=== PATIENT | female | born 1975 | race Caucasian/White ===

== ENCOUNTER → 2020-05-29 11:22 | Outpatient (ROUT) | payer OTHER, SELFPAY ==
[2020-05-29 11:42] LABS: COVID19 -Nasal RAPID Negative (Negative)
== END ==
PROVIDERS: PCP Family Medicine; Visit Provider Specialist
DX: Z01.818 Encounter for other preprocedural examination (principal); Z20.822 Contact with and (suspected) exposure to COVID-19
CPT/HCPCS: 87635

== ENCOUNTER 2020-05-29 12:38 | Day surgery (SDC) | payer OTHER, SELFPAY ==
[2020-05-29] VITALS (10 sets, daily range): BP systolic 98–138; BP diastolic 58–80; PULSE 62–98; RESP 14–19; TEMP 36.6–37.1; O2SAT 96–98; BMI 29.7
--- NOTE | 2020-05-29 | PATH_ITS ---
[facility] Accession Number: [id number] . 01 Material submitted: . uterus - UTERUS, LEFT OVARY, LEFT FALLOPIAN TUBE AND RIGHT FALLOPIAN TUBE . 01 Clinical history: . OPB . 02 Diagnosis: Uterus, Left Ovary, Left Fallopian Tube, and Right Fallopian Tube, Supracervical Hysterectomy, Left Salpingo-oophorectomy and Right Salpingectomy (Weight 64 grams): Weakly proliferative endometrium; negative for glandular hyperplasia, cytologic atypia or malignancy. Myometrium with no significant histomorphologic abnormality. Uterine serosa with no significant histomorphologic abnormality. Left ovary with a benign serous cystadenoma (1.8 cm in greatest dimension) and an adjacent benign follicle cyst (1.0 cm in greatest dimension). Left fallopian tube with benign paratubal cysts (1-2 mm) and no significant histomorphologic abnormality. Right fallopian tube with multiple benign paratubal cysts (1-2 mm in greatest dimension) and otherwise no significant histomorphologic abnormality. [facility] 06/05/2020 1235 Local . 02 Electronically signed: . Guera Harry MD, Pathologist NPI- [id number] . 01 Gross description: . The specimen is received in formalin, labeled uterus, left ovary, left tube and right tube and consists of a 64-gram supracervically resected uterus with attached left adnexa. The specimen is diffusely disrupted and measures 5.2 cm from superior fundus to lower uterine segment by 6.0 cm from cornu to cornu by 4.0 cm from anterior to posterior. The serosa is mulligan-pink and smooth. Sectioning reveals a 4.0 x 2.5 cm endometrial cavity with a mulligan-pink slightly granular endometrium measuring 0.1 cm in thickness. The myometrium is mulligan-pink and trabeculated measuring 2.2 cm in thickness. The left fallopian tube measures 3.5 cm in length by 0.6 cm in diameter and displays a pink-purple smooth serosa with multiple paratubal cysts ranging from 0.1 to 0.2 cm. Sectioning reveals a mulligan-pink mucosa and a stellate lumen measuring 0.3 cm in diameter. The left ovary measures 2.6 x 2.5 x 1.5 cm and displays a mulligan cerebriform to smooth external surface. Sectioning reveals two mulligan-pink smooth walled cysts measuring 1.0 and 1.8 cm. The larger cysts contains hemorrhagic material. No papillary excrescences are identified. The partially detached right fallopian tube measures 5.0 cm in length by 0.8 cm in diameter and displays a mulligan-pink smooth serosa with multiple paratubal cysts ranging from 0.1 to 0.2 cm. Sectioning reveals a mulligan-pink mucosa and a stellate lumen measuring 0.3 cm in diameter. Surgical Dressing Maker sections are submitted. . A1: anterior lower uterine segment. A2: posterior lower uterine segment. A3-A4: anterior uterus. A5-A6: posterior uterus. A7: left fallopian tube, central cross-sections and bisected fimbria. A8-A9: collections representative left ovary. A10: right fallopian tube, central cross-sections and bisected fimbria. (EA:[id number]) /MRV 05/30/2020 [facility]3 Local . 02 Pathologist provided ICD-10: N81.10, N92.0, N81.6, Z87.42 . 02 CPT . 943600 Performed at: [facility] [address] [id number] MD Carlos Ramos MD Phone: [phone] Performed at: 02 [facility] [address] [place], [place] [id number] MD Albertina Magallanes MD Phone: [phone]
--- NOTE | 2020-05-29 13:35 | PM.PREOP ---
Pre-operative Note COVID-19 COVID-19 status: Negative Result date/Date tested (Pos, Neg/Pending): 05/29/20 Interval Note History & Physical reviewed/Exam performed by Physician: Yes Changes to H&P: No
[2020-05-29] MEDS: CEFAZOLIN 2 GM/100 ML FROZ.PIGGY IV (14:10)
--- NOTE | 2020-05-29 14:44 | SUR.OPER ---
Lithotomy on padded OR bed. Rich[place] Pad Positioner under torso. Head on pillow, arms padded and tucked at sides. Legs secured in padded yellow fins stirrups.
[2020-05-29] MEDS: BUPIVACAINE 0.25% W/ EPI (PF) 10 ML VIAL 20 ML INJ (15:01)
[2020-05-29] MEDS: ROPIVACAINE 0.2% PF 2 MG/ML 10ML AMP 10 ML INJ (15:02)
[2020-05-29] MEDS: SODIUM CHLORIDE 0.9% FLUSH 10 ML IV (15:23)
--- NOTE | 2020-05-29 16:27 | PM.OP.1 ---
Operative Date/Time/Diagnoses Date of procedure: 05/29/20 Time of procedure: 16:27 Pre-op diagnosis: Menorrhagia, left lower quadrant pain, history of endometriosis, symptomatic vaginal wall prolapse rectocele predominant Post-op diagnosis: same Procedure & Clinicians Procedure: Laparoscopic supracervical hysterectomy with left salpingo-oophorectomy and right salpingectomy. Anterior and posterior repair with perineoplasty Same procedure as scheduled: Yes Indications: Menorrhagia and left lower quadrant pain with a history of endometriosis requesting supracervical hysterectomy and removal of her left tube and ovary. Symptomatic vaginal wall prolapse rectocele predominant. Surgeon: Noemy Hardy Library Technology Instructor: Nelli Erickson Click Yes if Unassisted: No Anesthesia Type: General Operative Notes Findings: Normal tubes, ovaries, uterus. Some mild adhesions in the left lower quadrant that were lysed. No active endometriosis. No internal hernias. Vaginal wall prolapse with minimal cystocele, second-degree rectocele, no significant cervical prolapse, gaping introitus. Closure Type: primary Specimen(s): other (Uterus above the level of bladder, right tube, left tube and ovary) Applied: catheter (López) and other (Vaginal packing) Estimated Blood Loss (mL): 40 Blood products transfused: none Procedure in detail: Patient is brought to the operating room where she underwent general anesthesia and placed in formerly [facility] stirrups. She was prepped and draped in the usual sterile fashion. A check list was reviewed with the staff in the room prior to beginning of the case. Patient had pulsatile stockings in place and functional. 2 g of Ancef were in prior to beginning of the case.. A López catheter was placed. A single-tooth tenaculum was placed on the anterior lip of the cervix and the cervix dilated to a #6 Hegar dilator. The uterine manipulator was placed through the cervix into the uterus with the balloon inflated with 3 mL of air. The area of the umbilical incision and the 5 mm right and left lower quadrant incisions were injected with Marcaine. An incision was made with scalpel. The verries needle was placed into the abdomen and confirmed in the appropriate place with withdrawal on a syringe and then free flow of fluid down through the needle. The abdomen was insufflated with CO2. The needle was removed and a 5 mm trocar placed without difficulty. There did not appear to be any damage with placement of the trocar. The right and left lower quadrant incisions were made with the scalpel and the trochars placed without damage to internal structures. The PK forceps were used to cauterize the left infundibulopelvic ligament.. Sequential bites were taken along the mesosalpinx followed by the round ligament. The right mesosalpinx was cauterized and cut followed utero-ovarian ligament and round ligament on the right side. Sequential bites were taken down the broad ligaments. The uterine arteries were cauterized. An incision was made above the level bladder pushing the bladder away from the cervix. The FARAZ loop was placed around the uterus and the uterus was amputated above the level of the bladder. Bleeding was controlled with the PK forceps. The PK forceps were used to cauterize in the endocervical canal. A supracervical incision was made and an 11 mm port placed. A 15 mm Endo Catch bag was placed in the abdomen. The uterus, tubes and left ovary were placed in the bag and brought up through the suprapubic port site. The Stephen O was placed. The uterus was hand morselized. The abdomen was reinsufflated and adequate hemostasis was noted. 20 cc of bupivacaine were placed over the cervical stump. The trochars were removed and the CO2 allowed escape from the abdomen. The fascia layer of the suprapubic site was repaired with 0 Polysorb suture. Skin was closed with 4-0 Monocryl suture at the suprapubic site and the other 3 sites. Next the procedure was switched to vaginal. The area of the cystocele and the rectocele was injected with a dilute solution of Marcaine with epinephrine. Incision was made over the cystocele with a scalpel. Dissection was undertaken laterally with sharp and blunt dissection. Plicating sutures of 0 Vicryl suture were placed. The vaginal incision was repaired with running 2 0 Vicryl suture. Next a wedge-shaped section of tissue was taken out of the posterior fourchette with a scalpel. An incision was made over the rectocele with a scalpel. Dissection was undertaken laterally. Plication sutures with 0 Vicryl were placed followed by a layer of 2 0 Vicryl plicating sutures. The incision was closed with 2 0 Vicryl suture building up the perineal body. Vaginal packing was placed. Patient went to recovery room in good condition. Counts of instruments and sponges were correct. Dr. Erickson was present throughout the case to assist with holding the camera, retracting, cauterizing and cutting the structures on the left side of the patient, as well as assisting with morselization of the uterus. She helped with retraction for the vaginal case. Complications: none Post-operative Condition: stable Disposition: Acute Care Plan for aftercare: Vaginal packing and López will be removed in a.m. home after bladder trial.
[2020-05-29] MEDS: PHENAZOPYRIDINE 100 MG TABLET PO (16:34)
[2020-05-29] MEDS: LACTATED RINGERS 1,000 ML 100 ML IV (16:58)
[2020-05-29] MEDS: OXYCODONE IR 5 MG TABLET PO ×2 (17:04→21:18)
[2020-05-29] MEDS: ONDANSETRON 4 MG/2 ML INJ IV (18:27)
--- NOTE | 2020-05-29 18:28 | PC.NURSE ---
pt got up the bathroom and felt nauseous, zofran given.
[2020-05-29] MEDS: ACETAMINOPHEN 325 MG TABLET 650 MG PO (21:19)
--- NOTE | 2020-05-29 23:16 | PC.NURSE ---
scant amount of blood in her tatiana pad. pt had an episode of nausea when she got up to the bathroom, zofran given. pt was then able to eat her dinner once the nausea was gone. luu patent to gravity.
[2020-05-30] VITALS: BP 118/72; PULSE 75; RESP 16; TEMP 36.4; O2SAT 97
--- NOTE | 2020-05-30 00:58 | PC.NURSE ---
patient is alert and oriented. Breath sounds CTA with RA sat of 97%. HRR. Denies nausea. BT present; abdomen is soft but tender and denies having passed any flatus as yet. Bandaids x 4 to abdominal lap sites with shadow drainage on suprapubic and umbilical dressings. Having crampy/pressure type pain in lower abdomen and rates severity as 2-3/10 but states it is tolerable. Indwelling catheter is patent; urine is clear, orange. Is able to move herself in bed. Gait not assessed at this time but reports she felt weak, shaky and unsteady when out of bed on previous shift. Scant amount serosanguinous drainage on peripad. Wearing bilateral calf SCD's. Fall risk score is moderate; patient knows to call for assistance if wanting to get out of bed.
[2020-05-30] MEDS: OXYCODONE IR 5 MG TABLET PO ×2 (03:06→07:42)
[2020-05-30] MEDS: LACTATED RINGERS 1,000 ML 100 ML IV (03:06)
[2020-05-30 03:30] VITALS: BP 109/68; PULSE 71; RESP 18; TEMP 36.2; O2SAT 95
[2020-05-30 06:19] LABS: Add Manual Diff / Slide Review NO; Basophils Absolute Auto 0 /uL (0-100); Eosinophils Absolute Auto 0 /uL (0-450); Hematocrit 38.1 % (36-46); Hemoglobin 12.7 g/dL (12.0-16.0); Lymphocytes Absolute Auto 1300 /uL (1100-4500); Lymphocytes Percent Auto 8.8 % (25-40); Mean Corpuscular HGB Conc 33.2 % (30-36); Mean Corpuscular Hemoglobin 29.4 PG (26-34); Mean Corpuscular Volume 88.5 fL (80-100); Monocytes Absolute Auto 700 /uL (0-900); Monocytes Percent Auto 4.5 % (3-14); Neutrophils Absolute Auto 13200 /uL (1500-7000); Neutrophils Percent Auto 86.7 % (50-75); Platelet Count 258 X10^3/uL (150-400); White Blood Cell Count 15.3 X10^3/uL (4.5-11.0)
--- NOTE | 2020-05-30 06:58 | P.DS_ITS ---
History of Present Illness History of Present Illness Date Patient Seen: 05/30/20 Time Patient Seen: 06:58 Chief complaint: OPB Narrative: Patient with menorrhagia, left lower abdominal pain, h/o endometriosis documented by laproscopy and symptomatic cystocoele and rectocoele who underwent laproscopic supracervical hysterectomy, left salpingoopherectomy, right salpingectomy, anterior and posterior repair, perineplasty. Discharge Providers Provider Discharge Date: 05/30/20 Primary care physician: Korin Starr MD Consults: 05/28/20 08:58 Consult to Respiratory Therapy Evaluate & Treat Comment: Current every day smoker Physician Instructions: Evaluate and treat 05/29/20 13:29 Consult to Respiratory Therapy Evaluate & Treat Comment: Physician Instructions: Evaluate and treat Discharge provider: Noemy Hardy MD Summary Hospital Course Discharge Diagnosis: menorrhagia, left lower abdominal pain, symptomatic rectocoele and cystocoele with gaping introitus Hospital Course: Patient underwent a laproscopic supracervical hysterectomy left salpingoopherectomy, right salpingectomy, anterior and posterior repair, perineoplasty. She is afebrile, pain is controlled. She passed her bladder trial in is ambulatory. Status at Discharge Cognitive/behavioral status at discharge: oriented Functional status at discharge: independent ambulation Overall status at discharge: patient is progressing back to baseline Time Spent with Patient Time spent: Less than 30 minutes Exam Vital Signs (past 8 hours): - 05/30/20 00:00 05/30/20 03:30 Temperature 97.6 F 97.2 F L Pulse Rate 75 71 Respiratory Rate 16 18 Blood Pressure 118/72 109/68 Pulse Oximetry 97 95 Oxygen Delivery Method Room Air Oxygen Flow Rate 0 Narrative Exam Narrative: Abdomen is soft, minimally tender. Dressings are dry. López and vaginal packing were removed. Minimal blood on packing. Extremities are without edema, nontender. Objective Labs Result Diagrams: 05/30/20 05:40 Labs: Laboratory Results - last 24 hr 05/30/20 05:40 WBC 15.3 H RBC 4.30 Hgb 12.7 Hct 38.1 MCV 88.5 MCH 29.4 MCHC 33.2 RDW 13.0 Plt Count 258 Neut % (Auto) 86.7 H Lymph % (Auto) 8.8 L Ste[place] % (Auto) 4.5 Eos % (Auto) 0.0 L Baso % (Auto) 0.0 Neut # (Auto) 08031 H Lymph # (Auto) 1300 [place]uben # (Auto) 700 Eos # (Auto) 0 Baso # (Auto) 0 PFSH Medical History (Updated 05/28/20 @ 08:57 by Chanel Hsu RN) History of endometriosis PCOS (polycystic ovarian syndrome) Surgical History (Updated 05/29/20 @ 16:24 by Noemy Hardy MD) History of laparoscopy (~1994) Social History household members: spouse and family Smoking Status: Current every day smoker Discharge Assessment & Plan Assessment and Plan Assessment: Post operative laproscopic supracervical hysterectomy, left salpingoopherectomy, right salpingectomy, anterior and posterior repair, perineoplasty doing well. She passed her bladder trial. Plan of Treatment: Home Discharge Plan Discharge Plan Patient Disposition: Home Discharge orders & Medications Discharge Orders: Discharge (Order); Ordered 05/30/20 Ordered By: Noemy Hardy Prescriptions: Continued oxycodone 5 mg tablet 5 mg PO Q4H PRN (Reason: pain) Qty: 30 RF: 0 omeprazole 20 mg capsule,delayed release(DR/EC) 20 mg PO DAILY RF: 0 evening primrose oil 500 mg capsule 500 mg PO .qd RF: 0 Adult Probiotic 3 billion cell capsule 3,000 mmu cells PO DAILY RF: 0 lidocaine HCl 2 % jelly 1 applic topical QD-TID PRN (Reason: pain) Qty: 30 RF: 2 docusate sodium [Colace] 100 mg Capsule 100 mg PO DAILY RF: 0 Follow up/Referrals: Noemy Hardy MD [Physician] - As previously scheduled (Appointment is 06/05/2020 at 12:00 p.m.) Korin Starr MD [Primary Care Provider] - Diet/Activity/Treatments Diet: Regular Activity: Nothing in vagina or lifting over 20 lb for 6 weeks Skin/Wound/Dressing Care Report to your healthcare provider any signs of infection, such as:: chills, fever, increased pain, unusual drainage and unusual redness Dressing: May remove Band-Aids today leave Steri-Strips in place for 1 week then remove, can get wet just pat dry Visit Report/Discharge Packet Instructions: DI for Laparoscopy, Hysterectomy -- Laparoscopic Surgery, DI for Prescription Opioid Use Stand Alone Forms: Patient Portal/API Discharge Data Primary Care Provider: Korin Starr Attending Provider: Noemy Hardy
[2020-05-30 07:30] VITALS: O2SAT 98
[2020-05-30] MEDS: ACETAMINOPHEN 325 MG TABLET 650 MG PO (07:43)
[2020-05-30 07:45] VITALS: BP 130/74; PULSE 67; RESP 15; TEMP 36.4; O2SAT 98
[2020-05-30] MEDS: DOCUSATE 100 MG CAPSULE PO (08:35)
--- NOTE | 2020-05-30 08:41 | PC.NURSE ---
Called Dr. Hardy's ext: [phone], informed Sangeeta that post void residual was 4mL on bladder scan, and that urine was not measured prior to bladder scan but pt reports feeling completely emptied, and adequate output.
--- NOTE | 2020-05-30 10:54 | PC.NURSE ---
Pt discharge education given to pt and spouse- discussed, diet, activity, medications, f/u appts, s/s of infection, s/s of stroke, reasons to seek medical attention. Dressings changed on abdomen to gauze and tegaderm, extra dressing supplies sent with pt. All questions answered. IV removed, intact, tolerated well. Pt dressed with spouse's assistance. Will call when ready to be escorted to POV.
--- NOTE | 2020-05-30 10:54 | CM.DANOTE ---
DCP Brief Assessment Note Patient is a 44 year old female who was admitted on 05/29/20 for hysterectomy. Pt has [employer] for insurance and her PCP is Dr. Starr. EMR was reviewed. Per AYAN ANGELA, pt tolerated procedure well and is medically stable to d/c home with family today after she voids independently and no identified barriers to discharge. Per RN, pt able to independently void small amount of urine and no concerns at this time. Due to triage needs and no identified d/c concerns, no bedside assessment completed at this time. Pt independent with ADL's at baseline and independent in room and with ambulation. Plan: Patient to d/c home today via spouse POV and no SW needs at this time. RADHA Mckeon
== END 2020-05-30 11:05 | disposition home or self-care (01) ==
LOC: OR 12:41 → AC 12:42
PROVIDERS: PCP Family Medicine; Referring Provider Specialist; Visit Provider Specialist
PROC: 0UT94ZL Resection of Uterus, Supracervical, Percutaneous Endoscopic Approach (ICD-10-PCS; CPT 58542; principal; 2020-05-29 14:00)
PROC: (CPT 58542; 2020-05-29 14:00)
DX: R10.32 Left lower quadrant pain (principal); N92.0 Excessive and frequent menstruation with regular cycle; N81.10 Cystocele, unspecified; N81.6 Rectocele; Z87.42 Personal history of other diseases of the female genital tract; F17.210 Nicotine dependence, cigarettes, uncomplicated; Z20.822 Contact with and (suspected) exposure to COVID-19; N73.6 Female pelvic peritoneal adhesions (postinfective); N83.8 Other noninflammatory disorders of ovary, fallopian tube and broad ligament; D27.1 Benign neoplasm of left ovary
CPT/HCPCS: 58542; 57260; 36415; 85025; 87635; J0690; J1100; J2250; J2405; J2704; J2795; J3010